=== PATIENT | male | born 1960 | race Native Hawaiian/Other Pacific Islander ===

== ENCOUNTER 2021-01-01 09:44 | Outpatient (REF) | payer MEDICAID, SELFPAY ==
--- NOTE | 2021-01-01 11:42 | XR_ITS ---
EXAMINATION: XR KNEE, LEFT CLINICAL INFORMATION: Left knee pain. COMPARISON: None TECHNIQUE: Four views of the left knee. FINDINGS: Mild medial compartment joint space narrowing with tiny marginal osteophytes. Tricompartmental chondrocalcinosis. No significant joint effusion. No fracture or dislocation. 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
[2021-01-01 12:06] LABS: MANUAL DIFF FLAG NO
[2021-01-01 12:08] LABS: Basophils Absolute Auto 0.1 X10*3/uL (0.0-0.2); Eosinophils Absolute Auto 0.3 X10*3/uL (0.0-0.4); Hematocrit 39.9 % (42-52); Hemoglobin 13.5 g/dl (14.0-18.0); Imm Gran Abs Auto 0.02 X10*3/uL (0.00-0.03); Imm Gran Pct Auto 0.3 % (0.0-0.4); Lymphocytes Absolute Auto 1.5 X10*3/uL (1.2-4.9); Mean Corpuscular HGB Conc 33.8 g/dl (31.0-36.0); Mean Corpuscular Hemoglobin 27.1 pg (27.0-33.0); Mean Corpuscular Volume 80.1 fL (80-98); Mean Platelet Volume 11.5 fL (9.4-12.4); Monocytes Absolute Auto 0.4 X10*3/uL (0.1-1.2); Monocytes Percent Auto 6.3 % (2-11); Neutrophils Absolute Auto 4.7 X10*3/uL (2.0-8.3); Neutrophils Percent Auto 67.4 % (45-73); Platelet Count 174 X10*3/uL (160-400); Red Blood Count 4.98 X10*6/uL (4.60-5.80); White Blood Count 6.9 X10*3/uL (4.8-10.8)
[2021-01-01 12:52] LABS: Alanine Aminotransferase 33 U/L (0-40); Albumin Level 4.5 g/dL (3.5-5.0); Alkaline Phosphatase 99 U/L (39-117); Anion Gap 15 (12-20); Aspartate Amino Transferase 23 U/L (5-37); Bilirubin Direct 0.2 mg/dL (0.0-0.5); Bilirubin Total 0.7 mg/dL (0.0-1.0); Blood Urea Nitrogen 17 mg/dL (9-16); Calcium 9.4 mg/dL (8.4-10.2); Carbon Dioxide 28 mmol/L (22-29); Chloride 101 mmol/L (96-108); Cholesterol 167 mg/dL; Estimated Glomerular Filt Rate > 60; Glucose Random 204 mg/dL (60-115); HDL Cholesterol 41 mg/dL; LDL Cholesterol Calculated 74 mg/dl; Potassium 4.6 mmol/L (3.3-5.1); Sodium 139 mmol/L (135-145); Triglycerides 263 mg/dL
[2021-01-01 12:57] LABS: Vitamin D 25-OH Total 30.3 ng/mL (>30)
[2021-01-01 13:23] LABS: Creatinine Urine 151.05 mg/dL
[2021-01-01 13:27] LABS: Estimated Average Glucose 200 mg/dL; Hemoglobin A1c % 8.6 %
[2021-01-01 14:01] LABS: Microalbum/Creatinine Ratio Ur 1548.4 ug/mg cr
== END 2021-01-01 09:45 | disposition home or self-care (01) ==
LOC: HO.LAB 09:44
PROVIDERS: Absent Provider Internal Medicine; PCP Internal Medicine; Visit Provider Nurse Practitioner Family
DX: Z00.00 Encounter for general adult medical examination without abnormal findings (principal); M25.562 Pain in left knee
CPT/HCPCS: 36415; 73564; 80048; 80061; 80076; 82043; 82306; 83036; 85025; 99202

== ENCOUNTER 2021-01-31 15:00 | Outpatient (RCR) | payer MEDICAID, SELFPAY ==
--- NOTE | 2021-01-17 15:02 | MHC.PT.EP ---
[facility] [place] Office [place] Office [place] Office [address] Jhonatan Farmer [address] [phone] F: [phone] F: [phone] F: [phone] F: [phone] Physical Therapy Plan of Care Date of Evaluation: 01/17/21 Date of Surgery: Diagnosis: sacroilitis Assessment: Pt has longstanding history of low back and leg pain. He has had therapy before with some improvement. Pt is avoiding surgery, but it sounds like his quality of life is significantly reduced. He can not drive very far due to pain. He has pain with all prolonged activity greater than 10 min. He says he stays in bed most of his day other than personal hygiene. Pt is a good candidate for conservative PT to educate on pain relieving positions, exercises, and functional modifications. Frequency and Duration: The patient will be seen 2x/week x 4 weeks. Short Term Goals: 1.Pt to able to demonstrate proper sitting posture with the use of a lumbar roll to decrease aggravating factors. 2.Pt to be able to demonstrate proper posture for common leisure activities such as crocheting and phone/tablet use. 3.For the patient to demonstrate proper upright sitting posture with use of the lumbar roll to improve compliance and carryover. Prison Goals: 4 weeks - 1.The patient to demonstrate proper lifting mechanics for household chore activities to show improved functional mobility. 2.The patient to report no leg or hip pain in order to show centralization of pain and reduction of lumbar derangement 3. Pt to be able to demonstrate self management of lumbar pain by demonstration of HEP. Treatment Plan: Modalities to reduce pain, spasms and effusion. Manual therapy to restore motion and function. Therapeutic exercise to improve strength and flexibility. Neuromuscular re-education for posture and balance. Therapeutic activities to return to functional activities of daily living. Electronically signed by: Jeanette Alegre PT DPT Please sign and return to therapist. Thank you for your referral.
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
== END 2021-03-27 14:39 | disposition other institution (70) ==
LOC: HO.PT 15:00
PROVIDERS: PCP Internal Medicine; Visit Provider Anesthesiology
DX: M46.1 Sacroiliitis, not elsewhere classified (principal)
CPT/HCPCS: 97110; 97112; 97162

== ENCOUNTER 2023-09-29 08:16 | Outpatient (REF) | payer MEDICAID, SELFPAY ==
[2023-09-29 12:13] LABS: Alanine Aminotransferase 27 U/L (0-40); Albumin Level 4.2 g/dL (3.5-5.0); Alkaline Phosphatase 102 U/L (39-117); Anion Gap 15 (12-20); Aspartate Amino Transferase 23 U/L (5-37); Bilirubin Direct 0.2 mg/dL (0.0-0.5); Bilirubin Total 0.4 mg/dL (0.0-1.0); Blood Urea Nitrogen 15 mg/dL (9-16); Calcium 10.6 mg/dL (8.4-10.2); Carbon Dioxide 28 mmol/L (22-29); Chloride 99 mmol/L (96-108); Cholesterol 166 mg/dL (<200); Estimated Glomerular Filt Rate > 60; Glucose Random 179 mg/dL (60-115); HDL Cholesterol 41 mg/dL (>40); LDL Cholesterol Calculated 89 mg/dL (<100); Potassium 3.9 mmol/L (3.3-5.1); Sodium 138 mmol/L (135-145); Total Protein 7.1 g/dL (6.5-8.0); Triglycerides 182 mg/dL (<150)
[2023-09-29 13:04] LABS: Creatinine Urine 171.09 mg/dL
== END 2023-09-29 08:17 | disposition home or self-care (01) ==
LOC: HO.HHCL 08:16
PROVIDERS: Visit Provider Family Medicine
DX: E11.9 Type 2 diabetes mellitus without complications (principal); Z79.4 Long term (current) use of insulin
CPT/HCPCS: 36415; 80048; 80061; 80076; 82043; 82570

== ENCOUNTER 2024-07-13 13:52 | Outpatient (REF) | payer MEDICAID, SELFPAY ==
[2024-07-13 16:27] LABS: Anion Gap 14 (12-20); Blood Urea Nitrogen 18 mg/dL (9-16); Carbon Dioxide 25 mmol/L (22-29); Chloride 103 mmol/L (96-108); Estimated Glomerular Filt Rate > 60; Glucose Random 89 mg/dL (60-115); Potassium 3.9 mmol/L (3.3-5.1); Sodium 138 mmol/L (135-145)
[2024-07-13 17:36] LABS: Vitamin B12 654 pg/mL (200-900)
[2024-07-14 08:13] LABS: ~Hepatitis B Surface Antibody NONREACTIVE (Nonreactive)
== END 2024-07-13 13:53 | disposition home or self-care (01) ==
LOC: HO.HHCL 13:52
PROVIDERS: Visit Provider Internal Medicine
DX: I10 Essential (primary) hypertension (principal); E11.65 Type 2 diabetes mellitus with hyperglycemia; Z79.4 Long term (current) use of insulin
CPT/HCPCS: 36415; 80048; 82607; 86706

== ENCOUNTER 2025-07-28 14:13 | Outpatient (REF) | payer OTHER, SELFPAY ==
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
--- OUTSIDE RECORDS SUMMARY | 2025-07-28 15:02 | XMS_ITS | Encounter Summary ---
Author Organization [employer] Address [address] [facility] 7t [place] [address] Care Team Providers Care Manager Of Business Name Role Phone Janine Nascimento MD Primary Care Provide r Encounter Details Date Type Department Care Team ([facility] st Contact Info) Description 09/21/2024 Orders Only [facility] MED[facility] [address] [place], [place] [phone] Janine Nascimento MD [address] [place] [address] Social History Tobacco Use Types Packs/Day Years Used Date Smoking Tobacco: Former Cigarettes Passive Smoke Exposure: Never Smokeless Tobacco: Never Alcohol Use Standard Drinks/Week Comments Never 0 (1 standard drink = 0.6 oz pur e alcohol) Depression Answer Date Recorded Patient Health Questionnaire-9 Score 0 06/21/2024 Patient Health Questionnaire-9 Score 0 06/21/2024 Last PHQ-9: Questionnaire Data Not on file 0 06/21/2024 Housing Stability Answer Date Recorded What is your housing situation today? I have edgar morrison 09/15/[address] you li ve. Do you have problems with any of the following? None of the above 09/15/2023 Food Insecurity Answer Date Recorded Within the past 12 months, y ou worried that your food would run out before you got money to buy more: Never True 09/15/2023 Within the past 12 months,th e food you bought just didn't last and you didn't have enough money to get more: Never True Transportation Answer Date Recorded In the past 12 months, has l ack of transportation kept you from medical appts, meetings, work or from getting things needed for daily living? No 09/15/2023 Utilities Answer Date Recorded In the past 12 months, has t he electric, gas, oil or water company threatened to shut off services in your home? No 09/15/2023 Depression Answer Date Recorded Patient Health Questionnaire-2 Score 0 06/21/2024 Internet Access Answer Date Recorded Internet Access Q1 No 08/02/2024 Internet Access Q2 I do not want or need it 01/2024 Sex and Gender Information Value Date Recorded Sex Assigned at Male 09/30/2022 10:29 AM EDT Legal Sex Male 10:29 AM EDT Gender Identity Male 09/30/2022 10:29 AM EDT Sexual Orientation Straight 09/30/2022 10 :29 AM EDT documented as of this encounter Plan of Treatment Not on file documented as of this encounter Visit Diagnoses Not on filedocumented in this encounter Additional Health Concerns Assessment Noted Time PHQ-9 Depression Total Score: 0 06/21/20 24 3:10 PM EDT documented as of this encounter Care Teams Manager Of Business Relationship Specialty Start Date End Date Janine Nascimento MD [address] [place] [address] PCP - General Family Medicine 08/12/18 documented as of this encounter
--- OUTSIDE RECORDS SUMMARY | 2025-07-28 15:02 | XMS_ITS | Encounter Summary ---
Author Organization [employer] Address 75 [facility] 7 [place] [address] Care Team Providers Care Mastic Floor Layer Name Role Phone Janine Nascimento MD Primary Care Provide r Reason for Visit * Reason Comments Med Refill Encounter Details Date Type Department Care Team ([facility] st Contact Info) Description 08/18/2024 Refill [facility] 230 [place], [place] [phone] Janine Nascimento MD [address] [place] [address] Type 2 diabetes mellitus with other specified complication, unspecified whether retirement insulin use ([facility]) Social History Tobacco Use Types Packs/Day Years Used Date Smoking Tobacco: Never Passive Smoke Exposure: Never Smokeless Tobacco: Never [...] as of this encounter Visit Diagnoses Diagnosis Type 2 diabetes mellitus with other specified complication, unspecified whether moth exterminator insulin use ([facility]) documented in this encounter Additional Health Concerns Assessment Noted Time PHQ-9 Depression Total Score: 0 06/21/20 24 3:10 PM EDT documented as of this encounter Care Teams Mastic Floor Layer Relationship Specialty Start Date End Date Janine Nascimento MD [address] [place] [address] PCP - General Family Medicine 08/12/18 documented as of this encounter
--- OUTSIDE RECORDS SUMMARY | 2025-07-28 15:02 | XMS_ITS | Encounter Summary ---
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); Benign prostatic hyperplasia, unspecified whether lower urinary tract symptoms present; Hyperlipidemia, unspecified hyperlipidemia type Social History Tobacco Use Types Packs/Day Years [...] mellitus with other specified complication, unspecified whether engine lathe set up operator insulin use ([facility]) Benign prostatic hyperplasia, unspecified whether lower urinary tract symptoms present Hyperlipidemia, unspecified hyperlipidemia type documented in this encounter Additional Health Concerns Assessment Noted Time PHQ-9 Depression Total Score: 0 06/21/20 24 3:10 PM EDT documented as of this encounter Care Teams Email Marketing Assistant Relationship Specialty Start Date End Date Janine Nascimento MD [address] [place] [id number] PCP - General Family Medicine 08/12/18 documented as of this encounter
--- OUTSIDE RECORDS SUMMARY | 2025-07-28 15:02 | XMS_ITS | Encounter Summary ---
Author Organization [employer] Address [address] [place] [address] 7 [place] [address] Care Team Providers Care Crab Butcher Name Role Phone Janine Nascimento MD Primary Care Provide r Reason for Visit * Reason Onset Date Comments Medication Question 04/08/2023 Trulicity Encounter Details Date Type Department Care Team ([facility] st Contact Info) Description 04/08/2023 Telephone [facility] MED[facility] 230 [place], [place] [phone] Janine Nascimento MD [address] [place] [address] Medication Question (Trulicity) Social History Tobacco Use Types Packs/Day Years Used Date Smoking Tobacco: Never Passive Smoke Exposure: Never Smokeless Tobacco: Never Sex and Gender Information Value Date Recorded Sex Assigned at Male 09/30/2022 10:29 AM EDT Legal Sex Male 10:29 AM EDT Gender Identity Male 09/30/2022 10:29 AM EDT Sexual Orientation Straight 09/30/2022 10 :29 AM EDT COVID-19 Exposure Response Date Recorded In the last 10 days, have yo u been in contact with someone who was confirmed or suspected to have Coronavirus/COVID-19? No / Unsure 03/14/2023 3:07 PM EDT documented as of this encounter Miscellaneous Notes * Telephone Encounter - Jazmine Saab RN - 04/08/2023 3:23 PM EDT TC returned to pt [phone] who reports since starting the trulicity medication his BS's have been ranging between 110-130. Pt is inquiring if he should continue taking trulicity or if he should stop. RN advised pt to continue taking medications EXACTLY as prescribed and to NOT self discontinue any medications without PCP approval. Pt reports PCP wanted him to report back his BS reading after 1 month of Trulicity. Pt informed RN would send message to PCP as FYI. Pt to F/U PRN. * Telephone Encounter - Mally Holliday - 04/08/2023 2:44 PM EDT Tc from patient requesting a call back, in regards to medication trulicity. States PCP told him to take it for 4 weeks and check back in. Pharmacy has gave him another month supply, he states his sugar is controlled but would like to know if he should take those 4 weeks or not. Please call [phone]. documented in this encounter Plan of Treatment Not on file documented as of this encounter Visit Diagnoses Not on filedocumented in this encounter Additional Health Concerns Assessment Noted Time PHQ-9 Depression Total Score: 0 03/14/20 23 3:29 PM EDT documented as of this encounter Care Teams Crab Butcher Relationship Specialty Start Date End Date Janine Nascimento MD [address] [place] [address] PCP - General Family Medicine 08/12/18 documented as of this encounter
--- OUTSIDE RECORDS SUMMARY | 2025-07-28 15:02 | XMS_ITS | Encounter Summary ---
Author Organization [employer] Address [address] [place] [address] 7t [place] [address] Care Team Providers Care Manufacturing Scheduler Name Role Phone Janine Nascimento MD Primary Care Provide r Reason for Visit * Reason Comments Med Refill Encounter Details Date Type Department Care Team (Late st Contact Info) Description 04/22/2023 Refill [facility] 230 [place], [place] [phone] Janine Nascimento MD [address] [place] [address] Social History Tobacco Use Types Packs/Day Years [...] documented as of this encounter Care Teams Manufacturing Scheduler Relationship Specialty Start Date End Date Janine Nascimento MD [address] [place] [address] PCP - General Family Medicine 08/12/18 documented as of this encounter
--- OUTSIDE RECORDS SUMMARY | 2025-07-28 15:02 | XMS_ITS | Encounter Summary ---
Author Organization [employer] Address [address] [facility] 7t [place] [address] Care Team Providers Care Sugar Coating Hand Name Role Phone Janine Nascimento MD Primary Care Provide r Encounter Details Date Type Department Care Team (Latest Contact Info) Description 07/28/2025 Travel Social History Tobacco Use Types Packs/Day Years [...] documented as of this encounter Care Teams Sugar Coating Hand Relationship Specialty Start Date End Date Janine Nascimento MD [address] [place] [address] PCP - General Family Medicine 08/12/18 documented as of this encounter
--- OUTSIDE RECORDS SUMMARY | 2025-07-28 15:02 | XMS_ITS | Encounter Summary ---
Author Organization [employer] Address 75 [facility] 7 [place] [address] Care Team Providers Care Veneer Grader Name Role Phone Janine Nascimento MD Primary Care Provide r Reason for Visit * Reason Comments Med Refill Encounter Details Date Type Department Care Team ([facility] st Contact Info) Description 09/09/[address] [facility] 230 [place], [place] [phone] Janine Nascimento MD [address] [place] [address] Type 2 diabetes mellitus with other specified complication, unspecified whether chcf insulin use ([facility]) Social History Tobacco Use Types Packs/Day Years [...] mellitus with other specified complication, unspecified whether utility aircrewman insulin use ([facility]) documented in this encounter Additional Health Concerns Assessment Noted Time PHQ-9 Depression Total Score: 0 06/21/20 24 3:10 PM EDT documented as of this encounter Care Teams Veneer Grader Relationship Specialty Start Date End Date Janine Nascimento MD [address] [place] [address] PCP - General Family Medicine 08/12/18 documented as of this encounter
--- OUTSIDE RECORDS SUMMARY | 2025-07-28 15:03 | XMS_ITS | Encounter Summary ---
Author Organization [employer] Address [address] [facility] 7t [place] [address] Care Team Providers Care Ice Guard Tester Name Role Phone Janine Nascimento MD Primary Care Provide r Encounter Details Date Type Department Care Team (Late st Contact Info) Description 05/13/2023 Orders Only [facility] [address] [place] [address] Zoe Cruz LPN Social History Tobacco Use Types Packs/Day Years [...] suspected to have Coronavirus/COVID-19? No / Unsure 05/05/2023 10:51 AM EDT documented as of this encounter Plan of Treatment Not on file documented as of this encounter Visit Diagnoses Not on filedocumented in this encounter Additional Health Concerns Assessment Noted Time PHQ-9 Depression Total Score: 0 03/14/20 23 3:29 PM EDT documented as of this encounter Care Teams Ice Guard Tester Relationship Specialty Start Date End Date Janine Nascimento MD [address] [place] [address] PCP - General Family Medicine 08/12/18 documented as of this encounter
--- OUTSIDE RECORDS SUMMARY | 2025-07-28 15:03 | XMS_ITS | Encounter Summary ---
Author Organization [employer] Address [address] [place] [address] 7 [place] [address] Care Team Providers Care Market Research Worker Name Role Phone Janine Nascimento MD Primary Care Provide r Encounter Details Date Type Department Care Team (Late st Contact Info) Description 11/08/2022 Orders Only [facility] MEDICINE [address] [place], [place] [phone] Karyn Cole MD [address] [place] [address] Other chronic pain (Primary Dx) Social History Tobacco Use Types Packs/Day Years Used Date Smoking Tobacco: Never Assessed Sex and Gender Information Value Date Recorded Sex Assigned at Male 09/30/2022 10:29 AM EDT Legal Sex Male 10:29 AM EDT Gender Identity Male 09/30/2022 10:29 AM EDT Sexual Orientation Straight 09/30/2022 10 :29 AM EDT documented as of this encounter Plan of Treatment Not on file documented as of this encounter Visit Diagnoses Diagnosis Other chronic pain- Primary documented in this encounter Care Teams Market Research Worker Relationship Specialty Start Date End Date Janine Nascimento MD [address] [place], [place] [phone] PCP - General Family Medicine 08/12/18 documented as of this encounter
--- OUTSIDE RECORDS SUMMARY | 2025-07-28 15:03 | XMS_ITS | Encounter Summary ---
Author Organization [employer] Address [address] [place] [address] 7 [place] [address] Care Team Providers Care Hay Baler Name Role Phone Janine Nascimento MD Primary Care Provide r Reason for Visit * Reason Comments Med Refill Encounter Details Date Type Department Care Team (Late st Contact Info) Description 07/14/2023 Refill [facility] 230 [place], [place] [phone] Janine Nascimento MD [address] [place] [address] Essential hypertension Social History Tobacco Use Types Packs/Day Years [...] as of this encounter Visit Diagnoses Diagnosis Essential hypertension Unspecified essential hypertension documented in this encounter Additional Health Concerns Assessment Noted Time PHQ-9 Depression Total Score: 0 03/14/20 23 3:29 PM EDT documented as of this encounter Care Teams Hay Baler Relationship Specialty Start Date End Date Janine Nascimento MD [address] [place], [place] [phone] PCP - General Family Medicine 08/12/18 documented as of this encounter
--- OUTSIDE RECORDS SUMMARY | 2025-07-28 15:03 | XMS_ITS | Clinical Summary ---
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 Left Eye Progression has no prior data. Disc findings include normal observations (Cup-to-disc ratio (C/D): 0.55/0.55 with thinning inferiorly, No NVD). Macula findings include normal observations (No CSME). Vessel findings include normal observations. Periphery findings include normal observations (No NVE). Notes Assessment and Plan: No Dr noted to extent seen in either eye. 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 Will have patient return for a dilated eye exam due to the nevus. Tiffany Chacon OD OPHTH PHOTOGRAPHY Final Resul t * (ABNORMAL) Albumin, Random Urine W/Creatinine (09/29/2023 8:19 AM EDT) Creatinine, Urine 171.09 mg/dL [facility] Microalbumin Urine 1,906.0 mg/L H [facility] Microalbum Creatinine Ratio Ur 1,114.0(H ) <30 ug/mg cr [facility] Comment:Albumin/Creatinine R atio Reference Ranges: Normal: < 30 ug/mg creatinine Microalbuminuria: 30 - 300 ug/mg creatinineClinical Albuminuria: > 300 ug/mg creatinine 09/29/2023 8:19 AM EDT 09/29/2023 11:45 AM EDT Richelle Martin MD LAB URINE ORDERABLES Final Result [facility] [address] [place] [phone] [phone] * (ABNORMAL) Lipid Panel, Standard (09/29/2023 8:19 AM EDT) Triglycerides 182(H) <150 mg/dL [facility] Comment:Desirable Triglyceri de: less than 150 mg/dLBorderline High Triglyceride 150-199 mg/dLHigh Triglyceride: 200-499 mg/dLVery High Triglyceride: greater than or equal to 5OO mg/dL Cholesterol 166 <200 mg/dL [facility] Comment:Desirable Cholestero l: less than 200 mg/dLBorderline High Cholesterol: 200-239 mg/dLHigh Cholesterol: greater than 239 mg/dL LDL Cholesterol Calculated 89 <100 mg/dL [facility] Comment:Desirable LDL: less than 100 mg/dLNear Optimal/Above Optimal LDL: 110- 129 mg/dLBorderline High LDL: 130-159 mg/dLHigh LDL: 160-189 mg/dLVery High LDL: greater than or equal to 190 mg/dL HDL Cholesterol 41 >40 mg/dL [facility] Comment:Desirable HDL: great er than 40 mg/dL Note: This HDL assay may give artificially low results in patients with liver disease. Blood Venous blood specimen / Unknown 09/29/2023 8:19 AM EDT 09/29/2023 11:50 AM EDT Richelle Martin MD LAB BLOOD ORDERABLES Final Result [facility] [address] [place] [phone] [phone] * Cologuard?? colon cancer screening (08/20/2023 2:56 PM EDT) Cologuard Result Negative Negative 08/25/20 6:22 PM EDT [facility] (CLIA #:[id number]) Comment: NEGATIVE TEST RESULT. A negative Cologuard result indicates a low likelihood that a colorectal cancer (CRC) or advanced adenoma (adenomatous polyps with more advanced pre-malignant features) is present. The chance that a person with a negative Cologuard test has a colorectal cancer is less than 1 in 1500 (negative predictive value >99.9%) or has an advanced adenoma is less than 5.3% (negative predictive value 94.7%). These data are based on a prospective cross-sectional study of 10,000 individuals at average risk for colorectal cancer who were screened with both Cologuard and colonoscopy. (Joselin Mai et al, N Engl J Med 2014;370(14):9881-3468) The normal value (reference range) for this assay is negative. COLOGUARD RE-SCREENING RECOMMENDATION: Periodic colorectal cancer screening is an important part of preventive healthcare for asymptomatic individuals at average risk for colorectal cancer. Following a negative Cologuard result, the [place] Cancer Society and U.S. Multi-Society Task Force screening guidelines recommend a Cologuard re-screening interval of 3 years. References: [employer] Cancer Society Guideline for Colorectal Cancer Screening: https://www.cancer.org/cancer/bjcem-lhqauh-xwgwqk/tukeyjjbi-atxifwlfg-lseedxu/ac s-rec ommendations.html.; Elie DK, [place] ARTEAGA, Samuel WhiteK, Colorectal Cancer Screening: Recommendations for Physicians and Patients from the U.S. Multi-Society Task Force on Colorectal Cancer Screening , Am J Gastroenterology 2017; 112:9249-2182. TEST DESCRIPTION: Composite algorithmic analysis of stool DNA-biomarkers with hemoglobin immunoassay. Quantitative values of individual biomarkers are not reportable and are not associated with individual biomarker result reference ranges. Cologuard is intended for colorectal cancer screening of adults of either sex, 45 years or older, who are at average-risk for colorectal cancer (CRC). Cologuard has been approved for use by the U.S. FDA. The performance of Cologuard was established in a cross sectional study of average-risk adults aged 50-84. Cologuard performance in patients ages 45 to 49 years was estimated by sub-group analysis of near-age groups. Colonoscopies performed for a positive result may find as the most clinically significant lesion: colorectal cancer [4.0%], advanced adenoma (including sessile serrated polyps greater than or equal to 1cm diameter) [20%] or non- advanced adenoma [31%]; or no colorectal neoplasia [45%]. These estimates are derived from a prospective cross-sectional screening study of 10,000 individuals at average risk for colorectal cancer who were screened with both Cologuard and colonoscopy. (Joselni Carver al, N Engl J Med 2014;370(14):7831-4943.) Cologuard may produce a false negative or false positive result (no colorectal cancer or precancerous polyp present at colonoscopy follow up). A negative Cologuard test result does not guarantee the absence of CRC or advanced adenoma (pre-cancer). The current Cologuard screening interval is every 3 years. ([employer] Cancer Society and U.S. Multi-Society Task Force). Cologuard performance data in a 10,000 patient pivotal study using colonoscopy as the reference method can be accessed at the following location: www.[employer]/results. Additional description of the Cologuard test process, warnings and precautions can be found at www.[employer].com. Stool specimen (specimen) 08/20/2023 2:56 PM EDT 08/21/2023 5:59 PM EDT Janine Martínez MD LAB MOLECULAR DIAGNOS TICS ORDERABLES Final Result [facility] (CLIA #:[id number]) [address] [place] [address], from Last 3 Months or Most Recently Relevant to Health Maintenance Insurance [facility] [employer] Care Teams Digital Commentator Relationship Specialty Start Date End Date Janine Nascimento MD [address] [place] [phone] PCP - General Family Medicine 9/12/18
--- OUTSIDE RECORDS SUMMARY | 2025-07-28 15:03 | XMS_ITS | Encounter Summary ---
Author Organization [employer] Address [address] [facility] 7t [place] [address] Care Team Providers Care Food Service Worker Hospital Name Role Phone Janine Nascimento MD Primary Care Provide r Reason for Visit * Reason Comments Med Refill Encounter Details Date Type Department Care Team ([facility] st Contact Info) Description 11/08/2024 Refill [facility] [address] [place], [place] [phone] Richelle Martin MD [address] [place] [address] Type 2 diabetes mellitus without complication, with long-term current use of insulin ([facility]) Social History Tobacco Use Types Packs/Day Years [...] Visit Diagnoses Diagnosis Type 2 diabetes mellitus without complication, with long-term current use of insulin ([facility]) documented in this encounter Additional Health Concerns Assessment Noted Time PHQ-9 Depression Total Score: 0 06/21/20 24 3:10 PM EDT documented as of this encounter Care Teams Food Service Worker Hospital Relationship Specialty Start Date End Date Janine Nascimento MD [address] [place] [phone] PCP - General Family Medicine 08/12/18 documented as of this encounter
--- OUTSIDE RECORDS SUMMARY | 2025-07-28 15:03 | XMS_ITS | Encounter Summary ---
Author Organization [employer] Address [address] [facility] 7t [place] [address] Care Team Providers Care Cut And Print Machine Operator Name Role Phone Janine Nascimento MD Primary Care Provide r Encounter Details Date Type Department Care Team (Late st Contact Info) Description 07/14/2023 Orders Only [facility] [address] [place] [address] Sylvia Ordonez LPN Social History Tobacco Use Types Packs/Day [...] documented as of this encounter Care Teams Cut And Print Machine Operator Relationship Specialty Start Date End Date Janine Nascimento MD [address] [place] [phone] PCP - General Family Medicine 08/12/18 documented as of this encounter
--- OUTSIDE RECORDS SUMMARY | 2025-07-28 15:03 | XMS_ITS | Encounter Summary ---
Author Organization [employer] Address [address] [place] [address] 7 [place] [address] Care Team Providers Care Clinical Project Leader Name Role Phone Janine Nascimento MD Primary Care Provide r Reason for Visit * Reason Comments Med Refill Encounter Details Date Type Department Care Team (Late st Contact Info) Description 01/10/2023 Refill [facility] [address] [place], [place] [phone] Karyn Cole MD [address] [place], [place] [phone] Type 2 diabetes mellitus with other specified complication, unspecified whether [facility] insulin use (CMS/HCC) Social History Tobacco Use Types Packs/Day Years [...] mellitus with other specified complication, unspecified whether watermelon inspector insulin use (CMS/HCC) documented in this encounter Care Teams Clinical Project Leader Relationship Specialty Start Date End Date Janine Nascimento MD [address] [place], [place] [phone] PCP - General Family Medicine 08/12/18 documented as of this encounter
--- OUTSIDE RECORDS SUMMARY | 2025-07-28 15:03 | XMS_ITS | Encounter Summary ---
Author Organization [facility] [employer] Address [address] [facility] 7t [place] [address] Care Team Providers Care Political Scientist Name Role Phone Janine Nascimento MD Primary Care Provide r Reason for Visit * Reason Comments Med Refill Encounter Details Date Type Department Care Team ([facility] st Contact Info) Description 11/27/2024 Refill [facility] [address] [place], [place] [phone] Richelle Martin MD [address] [place] [address] Type 2 diabetes mellitus without complication, with long-term current use of insulin ([facility]) Social History Tobacco Use Types Packs/Day Years [...] complication, with long-term current use of insulin ([facility]) documented in this encounter Additional Health Concerns Assessment Noted Time PHQ-9 Depression Total Score: 0 06/21/20 24 3:10 PM EDT documented as of this encounter Care Teams Political Scientist Relationship Specialty Start Date End Date Janine Nascimento MD [address] [place] [phone] PCP - General Family Medicine 08/12/18 documented as of this encounter
--- OUTSIDE RECORDS SUMMARY | 2025-07-28 15:03 | XMS_ITS | Encounter Summary ---
Author Organization [employer] Address [address] [place] [address] 7t [place] [address] Care Team Providers Care Pin Attacher Name Role Phone Janine Nascimento MD Primary Care Provide r Reason for Visit * Reason Comments Med Refill Encounter Details Date Type Department Care Team ([facility] st Contact Info) Description 08/23/2023 Refill [facility] [address] [place] [address] Janine Nascimento MD [address] [place] [address] Tinea pedis of both feet Social History Tobacco Use Types Packs/Day Years Used Date Smoking Tobacco: Never Passive Smoke Exposure: Never Smokeless Tobacco: Never Alcohol Use Standard Drinks/Week Comments Never 0 (1 standard drink = 0.6 oz pur e alcohol) Depression Answer Date Recorded Patient Health Questionnaire-9 Score 0 08/06/2023 Depression Answer Date Recorded Patient Health Questionnaire-2 Score 0 08/06/2023 Sex and Gender Information Value Date Recorded Sex Assigned at Male 09/30/2022 10:29 AM EDT Legal Sex Male 10:29 AM EDT Gender Identity Male 09/30/2022 10:29 AM EDT Sexual Orientation Straight 09/30/2022 10 :29 AM EDT documented as of this encounter Plan of Treatment Not on file documented as of this encounter Visit Diagnoses Diagnosis Tinea pedis of both feet documented in this encounter Additional Health Concerns Assessment Noted Time PHQ-9 Depression Total Score: 0 08/06/20 23 10:18 AM EDT documented as of this encounter Care Teams Pin Attacher Relationship Specialty Start Date End Date Janine Nascimento MD [address] [place] [address] PCP - General Family Medicine 08/12/18 documented as of this encounter
== END 2025-07-28 14:14 | disposition home or self-care (01) ==
LOC: HO.HHCX 14:13
PROVIDERS: PCP Internal Medicine; Visit Provider Internal Medicine
DX: M54.2 Cervicalgia (principal); M25.512 Pain in left shoulder; R07.81 Pleurodynia; M25.562 Pain in left knee; M25.552 Pain in left hip; V89.2XXA Person injured in unspecified motor-vehicle accident, traffic, initial encounter
CPT/HCPCS: 71111; 72040; 73030; 73502; 73564

== ENCOUNTER → 2025-07-28 14:35 | Outpatient (BNV) | payer OTHER, MEDICAID, SELFPAY | PROVIDERS: PCP Internal Medicine; Visit Provider Radiology Diagnostic Radiology | DX: R07.89 Other chest pain (principal); M17.12 Unilateral primary osteoarthritis, left knee; M25.462 Effusion, left knee; M25.552 Pain in left hip; M54.2 Cervicalgia; M25.512 Pain in left shoulder; V89.2XXA Person injured in unspecified motor-vehicle accident, traffic, initial encounter | CPT/HCPCS: 71111; 72040; 73030; 73502; 73564 ==

== ENCOUNTER 2025-09-30 11:59 | Outpatient (REF) | payer MEDICAID, SELFPAY ==
--- OUTSIDE RECORDS SUMMARY | 2025-09-30 13:32 | XMS_ITS | Encounter Summary ---
Author Organization [employer] Address [address] [place] [address] 7 [place] [address] Care Team Providers Care Scrap Baller Name Role Phone Janine Nascimento MD Primary Care Provide r Reason for Visit * Reason Onset Date Comments Medication Question 04/08/2023 Trulicity Encounter Details Date Type Department Care Team ([facility] st Contact Info) Description 04/08/2023 Telephone [facility] [address] [place], [place] [phone] Janine Nascimento MD [address] [place] [address] Medication Question (Trulicity) Social History Tobacco Use [...] 3:23 PM EDT TC returned to pt [phone] who reports since starting the trulicity medication [...] those 4 weeks or not. Please call [phone]. documented in this encounter Plan of Treatment Upcoming Encounters Date Type Department Care Team (Late st Contact Info) Description 10/12/2025 11:30 AM EST Office Visit [facility] [address] [place] [address] [phone] Janine Nascimento MD [address] [place] [phone] documented as of this encounter Visit Diagnoses Not on filedocumented in this encounter Additional Health Concerns Assessment Noted Time PHQ-9 Depression Total Score: 0 03/14/20 23 3:29 PM EDT documented as of this encounter Care Teams Scrap Baller Relationship Specialty Start Date End Date Janine Nascimento MD [address] [place] [address] [phone] PCP - General Family Medicine 08/12/18 documented as of this encounter
--- OUTSIDE RECORDS SUMMARY | 2025-09-30 13:32 | XMS_ITS | Encounter Summary ---
Author Organization [employer] Address [address] [facility] 7t [place] [address] Care Team Providers Care Guideman Name Role Phone Janine Nascimento MD Primary Care Provide r Encounter Details Date Type Department Care Team ([facility] st Contact Info) Description 09/21/2024 Orders Only [facility] [address] [place], [place] [phone] Janine Nascimento MD [address] [place] [address] Social History Tobacco Use Types Packs/Day Years [...] as of this encounter Plan of Treatment Upcoming Encounters Date Type Department Care Team (Late st Contact Info) Description 10/12/2025 11:30 AM EST Office Visit [facility] [address] [place] [address] Janine Nascimento MD [address] [place] [phone] documented as of this encounter Visit Diagnoses Not on filedocumented in this encounter Additional Health Concerns Assessment Noted Time PHQ-9 Depression Total Score: 0 06/21/20 24 3:10 PM EDT documented as of this encounter Care Teams Guideman Relationship Specialty Start Date End Date Janine Nascimento MD [address] [place] [phone] PCP - General Family Medicine 08/12/18 documented as of this encounter
--- OUTSIDE RECORDS SUMMARY | 2025-09-30 13:32 | XMS_ITS | Encounter Summary ---
Author Organization [employer] Address [address] [facility] 7t [place] [address] Care Team Providers Care Datastage Developer Name Role Phone Janine Nascimento MD Primary Care Provide r Reason for Visit * Reason Comments Med Refill Encounter Details Date Type Department Care Team ([facility] st Contact Info) Description 11/27/2024 Refill [facility] [address] [place], [place] [phone] Richelle Martin MD [address] [place] [address] Type 2 diabetes mellitus without complication, with long-term current use of insulin ([facility]) Social History Tobacco Use Types Packs/Day [...] Description 10/12/2025 11:30 AM EST Office Visit [facility] [address] [place] [address] Janine Nascimento MD [address] [place] [address] documented as of this encounter Visit Diagnoses Diagnosis Type 2 diabetes mellitus without complication, with long-term current use of insulin (HCC) documented in this encounter Additional Health Concerns Assessment Noted Time PHQ-9 Depression Total Score: 0 06/21/20 24 3:10 PM EDT documented as of this encounter Care Teams Datastage Developer Relationship Specialty Start Date End Date Janine Nascimento MD [address] [place] [address] PCP - General Family Medicine 08/12/18 documented as of this encounter
--- OUTSIDE RECORDS SUMMARY | 2025-09-30 13:32 | XMS_ITS | Encounter Summary ---
Author Organization [employer] Address [address] [facility] 7 [place] [address] Care Team Providers Care Feed Crusher Operator Name Role Phone Janine Nascimento MD Primary Care Provide r Reason for Visit * Reason Comments Med Refill Encounter Details Date Type Department Care Team ([facility] st Contact Info) Description 08/18/2024 Refill [facility] [address] [place], [place] [phone] Janine Nascimento MD [address] [place] [address] Type 2 diabetes mellitus with other specified complication, unspecified whether rat exterminator insulin use ([facility]) Social History Tobacco Use Types [...] Description 10/12/2025 11:30 AM EST Office Visit [facility] [address] [place] [address] Janine Nascimento MD [address] [place] [address] documented as of this encounter Visit Diagnoses Diagnosis Type 2 diabetes mellitus with other specified complication, unspecified whether usp insulin use (HCC) documented in this encounter Additional Health Concerns Assessment Noted Time PHQ-9 Depression Total Score: 0 06/21/20 24 3:10 PM EDT documented as of this encounter Care Teams Feed Crusher Operator Relationship Specialty Start Date End Date Janine Nascimento MD 230 [place], [place] [phone] PCP - General Family Medicine 08/12/18 documented as of this encounter
--- OUTSIDE RECORDS SUMMARY | 2025-09-30 13:32 | XMS_ITS | Encounter Summary ---
Author Organization [employer] Address [address] [facility] 7 [place] [address] Care Team Providers Care Object Oriented Programmer Name Role Phone Janine Nascimento MD Primary Care Provide r Reason for Visit * Reason Comments Med Refill Encounter Details Date Type Department Care Team ([facility] st Contact Info) Description 09/09/2024 Refill [facility] [address] [place], [place] [phone] Janine Nascimento MD [address] [place] [address] Type 2 diabetes mellitus with other specified complication, unspecified whether ocean transportation intermediary insulin use ([facility]) Social History Tobacco Use Types [...] Description 10/12/2025 11:30 AM EST Office Visit [facility] MEDICINE [address] [place] [address] Janine Nascimento MD [address] [place] [address] documented as of this encounter Visit Diagnoses Diagnosis Type 2 diabetes mellitus with other specified complication, unspecified whether custodial insulin use (HCC) documented in this encounter Additional Health Concerns Assessment Noted Time PHQ-9 Depression Total Score: 0 06/21/20 24 3:10 PM EDT documented as of this encounter Care Teams Object Oriented Programmer Relationship Specialty Start Date End Date Janine Nascimento MD [address] [place], [place] [phone] PCP - General Family Medicine 08/12/18 documented as of this encounter
--- OUTSIDE RECORDS SUMMARY | 2025-09-30 13:32 | XMS_ITS | Encounter Summary ---
Author Organization [employer] Address [address] [facility] 7t [place] [address] Care Team Providers Care Nutritionalist Name Role Phone Janine Nascimento MD Primary Care Provide r Reason for Visit * Reason Comments Med Refill Encounter Details Date Type Department Care Team ([facility] st Contact Info) Description 11/08/2024 Refill [facility] [address] [place], [place] [phone] Richelle Martin MD [address] [place] [address] Type 2 diabetes mellitus without complication, with long-term current use of insulin ([facility]) Social History Tobacco Use Types Packs/Day [...] Description 10/12/2025 11:30 AM EST Office Visit [facility] MEDICINE [address] [place] [address] Janine Nascimento MD [address] [place] [address] documented as of this encounter Visit Diagnoses Diagnosis Type 2 diabetes mellitus without complication, with long-term current use of insulin (HCC) documented in this encounter Additional Health Concerns Assessment Noted Time PHQ-9 Depression Total Score: 0 06/21/20 24 3:10 PM EDT documented as of this encounter Care Teams Nutritionalist Relationship Specialty Start Date End Date Janine Nascimento MD [address] [place] [address] PCP - General Family Medicine 08/12/18 documented as of this encounter
--- OUTSIDE RECORDS SUMMARY | 2025-09-30 13:32 | XMS_ITS | Encounter Summary ---
Author Organization [employer] Address [address] [place] [address] 7 [place] [address] Care Team Providers Care Slasher Tender Name Role Phone Janine Nascimento MD Primary Care Provide r Reason for Visit * Reason Comments Med Refill Encounter Details Date Type Department Care Team ([facility] st Contact Info) Description 03/14/2025 Refill [facility] MEDICINE [address] [place], [place] [phone] Janine Nascimento MD [address] [place] [address] Type 2 diabetes mellitus with other specified complication, unspecified whether detention insulin use ([facility]); Benign prostatic hyperplasia, unspecified whether lower urinary [...] Description 10/12/2025 11:30 AM EST Office Visit [facility] MEDICINE [address] [place] [phone] Janine Nascimento MD [address] [place] [phone] documented as of this encounter Visit Diagnoses Diagnosis Type 2 diabetes mellitus with other specified complication, unspecified whether detention insulin use (HCC) Benign prostatic hyperplasia, unspecified whether lower urinary tract symptoms present Hyperlipidemia, unspecified hyperlipidemia type documented in this encounter Additional Health Concerns Assessment Noted Time PHQ-9 Depression Total Score: 0 06/21/20 24 3:10 PM EDT documented as of this encounter Care Teams Slasher Tender Relationship Specialty Start Date End Date Janine Nascimento MD [address] [place] [phone] PCP - General Family Medicine 08/12/18 documented as of this encounter
--- OUTSIDE RECORDS SUMMARY | 2025-09-30 13:32 | XMS_ITS | Encounter Summary ---
Author Organization [email or web address] Address [address] [facility] 7t [place] [address] Care Team Providers Care Oracle Erp Developer Name Role Phone Janine Nascimento MD Primary Care Provide r Encounter Details Date Type Department Care Team (Late Contact Info) Description 05/13/2023 Orders Only [facility] MED & PEDS [address] [place] [address] Zoe Cruz LPN Social History Tobacco Use [...] Description 10/12/2025 11:30 AM EST Office Visit [facility] MEDICINE 230 [place], [place] [phone] Janine Nascimento MD [address] [place], [place] [phone] documented as of this encounter Visit Diagnoses Not on filedocumented in this encounter Additional Health Concerns Assessment Noted Time PHQ-9 Depression Total Score: 0 03/14/20 23 3:29 PM EDT documented as of this encounter Care Teams Oracle Erp Developer Relationship Specialty Start Date End Date Janine Nascimento MD [address] [place] [address] PCP - General Family Medicine 08/12/18 documented as of this encounter
--- OUTSIDE RECORDS SUMMARY | 2025-09-30 13:32 | XMS_ITS | Encounter Summary ---
Author Organization [employer] Address [address] [place] [address] 7 [place] [address] Care Team Providers Care Roving Winder Name Role Phone Janine Nascimento MD Primary Care Provide r Reason for Visit * Reason Comments Med Refill Encounter Details Date Type Department Care Team ([facility] Contact Info) Description 04/22/2023 Refill [facility] MED[facility] [address] [place] [address] [phone] Janine Nascimento MD [address] [place] [phone] Social History Tobacco Use Types Packs/Day Years [...] Encounters Date Type Department Care Team (Late Contact Info) Description 10/12/2025 11:30 AM EST Office Visit [facility] MED[facility] [address] [place] [address] [phone] Janine Nascimento MD [address] [place] [phone] documented as of this encounter Visit Diagnoses Not on filedocumented in this encounter Additional Health Concerns Assessment Noted Time PHQ-9 Depression Total Score: 0 03/14/20 23 3:29 PM EDT documented as of this encounter Care Teams Roving Winder Relationship Specialty Start Date End Date Janine Nascimento MD [address] [place] [address] PCP - General Family Medicine 08/12/18 documented as of this encounter
--- OUTSIDE RECORDS SUMMARY | 2025-09-30 13:33 | XMS_ITS | Encounter Summary ---
Author Organization [employer] Address [address] [place] [address] 7 [place] [address] Care Team Providers Care Strategic Analyst Name Role Phone Janine Nascimento MD Primary Care Provide r Encounter Details Date Type Department Care Team (Late st Contact Info) Description 07/14/2023 Orders Only [facility] MED & PEDS [address] [place], [place] [phone] Sylvia Ordonez LPN Social History Tobacco Use [...] Description 10/12/2025 11:30 AM EST Office Visit [facility] MEDICINE [address] [place] [address] Janine Nascimento MD [address] [place] [address] documented as of this encounter Visit Diagnoses Not on filedocumented in this encounter Additional Health Concerns Assessment Noted Time PHQ-9 Depression Total Score: 0 03/14/20 23 3:29 PM EDT documented as of this encounter Care Teams Strategic Analyst Relationship Specialty Start Date End Date Janine Nascimento MD [address] [place] [address] PCP - General Family Medicine 08/12/18 documented as of this encounter
--- OUTSIDE RECORDS SUMMARY | 2025-09-30 13:33 | XMS_ITS | Encounter Summary ---
Author Organization [employer] Address [address] [place] [address] 7 [place] [address] Care Team Providers Care Straddle Truck Driver Name Role Phone Janine Nascimento MD Primary Care Provide r Reason for Visit * Reason Comments Med Refill Encounter Details Date Type Department Care Team (Late st Contact Info) Description 07/14/2023 Refill [facility] [address] [place], [place] [phone] Janine Nascimento MD [address] [place] [address] Essential hypertension Social History Tobacco Use Types [...] Description 10/12/2025 11:30 AM EST Office Visit [facility] MEDICINE [address] [place], [place] [phone] Janine Nascimento MD [address] [place], [place] [phone] documented as of this encounter Visit Diagnoses Diagnosis Essential hypertension Unspecified essential hypertension documented in this encounter Additional Health Concerns Assessment Noted Time PHQ-9 Depression Total Score: 0 03/14/20 23 3:29 PM EDT documented as of this encounter Care Teams Straddle Truck Driver Relationship Specialty Start Date End Date Janine Nascimento MD [address] [place] [phone] PCP - General Family Medicine 08/12/18 documented as of this encounter
--- OUTSIDE RECORDS SUMMARY | 2025-09-30 13:33 | XMS_ITS | Clinical Summary ---
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 specimen / Unknown 07/14/2025 1:37 PM EDT Janine Martínez MD POINT OF CARE TEST EN TER/EDIT ORDERABLES Final Result * (ABNORMAL) Albumin, Random Urine W/Creatinine (09/29/2023 8:19 AM EDT) Creatinine, Urine 171.09 mg/dL [facility] Microalbumin Urine 1,906.0 mg/L H [facility] Microalbum Creatinine Ratio Ur 1,114.0(H ) <30 ug/mg cr [facility] Comment:Albumin/Creatinine R at Reference Ranges: Normal: < 30 ug/mg creatinine Microalbuminuria: 30 - 300 ug/mg creatinineClinical Albuminuria: > 300 ug/mg creatinine 09/29/2023 8:19 AM EDT 09/29/2023 11:45 AM EDT Richelle Martin MD LAB URINE ORDERABLES Final Result Performing Organization Address [facility] Co de Phone Number [facility] [address] [place] [address] [phone] * (ABNORMAL) Lipid Panel, Standard (09/29/2023 8:19 AM EDT) Triglycerides 182(H) <150 mg/dL [facility] Comment:Desirable Triglyceri de: less than 150 mg/dLBorderline High Triglyceride 150-199 mg/dLHigh Triglyceride: 200-499 mg/dLVery High Triglyceride: greater than or equal to 5OO mg/dL Cholesterol 166 <200 mg/dL [facility] Comment:Desirable Cholestero l: less than 200 mg/dLBorderline High Cholesterol: 200-239 mg/dLHigh Cholesterol: greater than 239 mg/dL LDL Cholesterol Calculated 89 <100 mg/dL [facility] Comment:Desirable LDL: less than 100 mg/dLNear Optimal/Above Optimal LDL: 110- 129 mg/dLBorderline High LDL: 130-159 mg/dLHigh LDL: 160-189 mg/dLVery High LDL: greater than or equal to 190 mg/dL HDL Cholesterol 41 >40 mg/dL [facility] Comment:Desirable HDL: great er than 40 mg/dL Note: This HDL assay may give artificially low results in patients with liver disease. Blood Venous blood specimen / Unknown 09/29/2023 8:19 AM EDT 09/29/2023 11:50 AM EDT Richelle Martin MD LAB BLOOD ORDERABLES Final Result Performing Organization Address City/[facility]/ZIP Co de Phone Number [facility] [address] [place] [address] [phone] * Cologuard?? colon cancer screening (08/20/2023 2:56 PM EDT) Cologuard Result Negative Negative 08/25/20 6:22 PM EDT [employer] (CLIA #:[id number]) Comment: NEGATIVE TEST RESULT. A negative Cologuard [...] screened with both Cologuard and colonoscopy. (Joselin Brown. et al, N Engl J Med 2014;370(14):9988-3528) The normal value (reference range) for this assay is negative. COLOGUARD RE-SCREENING RECOMMENDATION: Periodic colorectal cancer screening is an important part of preventive healthcare for asymptomatic individuals at average risk for colorectal cancer. Following a negative Cologuard result, the [place] [employer] and U.S. Multi-Society Task Force screening guidelines recommend a Cologuard re-screening interval of 3 years. References: [place] [employer] Guideline for Colorectal Cancer Screening: https://www.cancer.org/cancer/vitbp-nuqlfp-ktxfke/mmtypclvg-rvsmufifm-rutkovr/ac s-rec ommendations.html.; Elie KELLER, [place] ARTEAGA, Samuel WhiteK, Colorectal Cancer Screening: Recommendations for Physicians and Patients from the U.S. Multi-Society Task Force on Colorectal Cancer Screening , Am J Gastroenterology 2017; 112:0508-8296. TEST DESCRIPTION: Composite algorithmic analysis of stool [...] screened with both Cologuard and colonoscopy. (Joselin Brown. et al, N Engl J Med 2014;370(14):4488-4397.) Cologuard may produce a false negative or false positive result (no colorectal cancer or precancerous polyp present at colonoscopy follow up). A negative Cologuard test result does not guarantee the absence of CRC or advanced adenoma (pre-cancer). The current Cologuard screening interval is every 3 years. ([place] [employer] and U.S. Multi-Society Task Force). Cologuard performance data in a 10,000 patient pivotal study using colonoscopy as the reference method can be accessed at the following location: www.[employer]/results. Additional description of the Cologuard test process, warnings and precautions can be found at www.[employer].com. Stool specimen (specimen) 08/20/2023 2:56 PM EDT 08/21/2023 5:59 PM EDT Janine Martínez MD LAB MOLECULAR DIAGNOS TICS ORDERABLES Final Result [employer] (CLIA #:[id number]) [place] [address], from Last 3 Months or Most Recently Relevant to Health Maintenance Insurance [facility] [employer] Care Teams Insurance Counsel Relationship Specialty Start Date End Date Janine Nascimento MD [address] [place] [phone] PCP - General Family Medicine 08/12/18
--- OUTSIDE RECORDS SUMMARY | 2025-09-30 13:33 | XMS_ITS | Encounter Summary ---
Author Organization [email or web address] Address [address] [place] [address] [facility] [place] [address] Care Team Providers Care Bridge Opener Name Role Phone Janine Nascimento MD Primary Care Provide r Reason for Visit * Reason Comments Med Refill Encounter Details Date Type Department Care Team (Late st Contact Info) Description 01/10/2023 Refill [facility] [address] [place], [place] [phone] Karyn Cole MD [address] [place] [address] Type 2 diabetes mellitus with other specified complication, unspecified whether superintendent container terminal insulin use (CMS/HCC) Social History Tobacco Use [...] Description 10/12/2025 11:30 AM EST Office Visit [facility] [address] [place], [place] [phone] Janine Nascimento MD [address] [place], [place] [phone] documented as of this encounter Visit Diagnoses Diagnosis Type 2 diabetes mellitus with other specified complication, unspecified whether fpc insulin use (HCC) documented in this encounter Care Teams Bridge Opener Relationship Specialty Start Date End Date Janine Nascimento MD [address] [place] [address] PCP - General Family Medicine 08/12/18 documented as of this encounter
--- OUTSIDE RECORDS SUMMARY | 2025-09-30 13:33 | XMS_ITS | Encounter Summary ---
Author Organization [employer] Address [address] [place] [address] 7 [place] [address] Care Team Providers Care Director Title Name Role Phone Janine Nascimento MD Primary Care Provide r Reason for Visit * Reason Comments Med Refill Encounter Details Date Type Department Care Team ([facility] st Contact Info) Description 09/21/2025 Refill [facility] [address] [place], [place] [phone] Janine Nascimento MD [address] [place] [address] Type 2 diabetes mellitus with other specified complication, unspecified whether retirement insulin use (HCC); Type 2 diabetes mellitus with hyperglycemia, with long-term current use of insulin (HCC); Muscle spasm; Benign prostatic hyperplasia, unspecified whether lower urinary tract symptoms present Social History Tobacco Use Types Packs/Day Years [...] Description 10/12/2025 11:30 AM EST Office Visit [facility] [address] [place] [phone] Janine Nascimento MD [address] [place] [phone] documented as of this encounter Visit Diagnoses Diagnosis Type 2 diabetes mellitus with other specified complication, unspecified whether long chain quiller tender insulin use (HCC) Type 2 diabetes mellitus with hyperglycemia, with long-term current use of insulin (HCC) Muscle spasm Spasm of muscle Benign prostatic hyperplasia, unspecified whether lower urinary tract symptoms present documented in this encounter Additional Health Concerns Assessment Noted Time PHQ-9 Depression Total Score: 0 07/14/20 25 1:44 PM EDT documented as of this encounter Care Teams Director Title Relationship Specialty Start Date End Date Janine Nascimento MD [address] [place] [phone] PCP - General Family Medicine 08/12/18 documented as of this encounter
--- OUTSIDE RECORDS SUMMARY | 2025-09-30 13:33 | XMS_ITS | Encounter Summary ---
Author Organization [employer] Address [address] [place] [address] 7 [place] [address] Care Team Providers Care Color Finisher Name Role Phone Janine Nascimento MD Primary Care Provide r Reason for Visit * Reason Comments Med Refill Encounter Details Date Type Department Care Team (Late Contact Info) Description 08/23/2023 Refill [facility] [address] [place], [place] [phone] Janine Nascimento MD [address] [place] [address] Tinea pedis of both feet Social History [...] EST Office Visit [facility] [address] [place] [address] Janine Nascimento MD [address] [place] [address] documented as of this encounter Visit Diagnoses Diagnosis Tinea pedis of both feet documented in this encounter Additional Health Concerns Assessment Noted Time PHQ-9 Depression Total Score: 0 08/06/20 23 10:18 AM EDT documented as of this encounter Care Teams Color Finisher Relationship Specialty Start Date End Date Janine Nascimento MD [address] [place] [phone] PCP - General Family Medicine 08/12/18 documented as of this encounter
--- OUTSIDE RECORDS SUMMARY | 2025-09-30 13:33 | XMS_ITS | Encounter Summary ---
Author Organization [employer] Address [address] [place] [address] 7 [place] [address] Care Team Providers Care Machine Operator General Name Role Phone Janine Nascimento MD Primary Care Provide r Encounter Details Date Type Department Care Team (Late Contact Info) Description 11/08/[address] [facility] [address] [place] [phone] Karyn Cole MD [address] [place] [phone] Other chronic pain (Primary Dx) Social History [...] Description 10/12/2025 11:30 AM EST Office Visit [facility] [address] [place] [phone] Janine Nascimento MD [address] [place] [address] [phone] documented as of this encounter Visit Diagnoses Diagnosis Other chronic pain- Primary documented in this encounter Care Teams Machine Operator General Relationship Specialty Start Date End Date Janine Nascimento MD [address] [place] [address] [phone] PCP - General Family Medicine 08/12/18 documented as of this encounter
[2025-09-30 13:38] LABS: Alanine Aminotransferase 22 U/L (0-40); Albumin Level 4.2 g/dL (3.5-5.0); Alkaline Phosphatase 117 U/L (39-117); Anion Gap 12 (12-20); Aspartate Amino Transferase 26 U/L (5-37); Blood Urea Nitrogen 17 mg/dL (9-16); Calcium 9.1 mg/dL (8.4-10.2); Carbon Dioxide 29 mmol/L (22-29); Chloride 104 mmol/L (96-108); Estimated Glomerular Filt Rate > 60; Potassium 4.3 mmol/L (3.3-5.1); Sodium 141 mmol/L (135-145); Total Protein 6.8 g/dL (6.5-8.0)
[2025-09-30 13:49] LABS: Alanine Aminotransferase 22 U/L (0-40); Albumin Level 4.2 g/dL (3.5-5.0); Alkaline Phosphatase 116 U/L (39-117); Anion Gap 12 (12-20); Aspartate Amino Transferase 32 U/L (5-37); Blood Urea Nitrogen 18 mg/dL (9-16); Calcium 9.0 mg/dL (8.4-10.2); Carbon Dioxide 29 mmol/L (22-29); Chloride 104 mmol/L (96-108); Cholesterol 120 mg/dL (<200); Estimated Glomerular Filt Rate > 60; HDL Cholesterol 33 mg/dL (>40); Lipase 58 U/L (8-78); Potassium 4.2 mmol/L (3.3-5.1); Sodium 141 mmol/L (135-145); Total Protein 6.8 g/dL (6.5-8.0); Triglycerides 88 mg/dL (<150)
[2025-09-30 14:44] LABS: Microalbum/Creatinine Ratio Ur 793.2 ug/mg cr (<30)
== END 2025-09-30 12:00 | disposition home or self-care (01) ==
LOC: HO.HHCL 11:59
PROVIDERS: Internal Medicine; PCP Internal Medicine; Visit Provider Internal Medicine
DX: E11.65 Type 2 diabetes mellitus with hyperglycemia (principal); K52.9 Noninfective gastroenteritis and colitis, unspecified; Z79.4 Long term (current) use of insulin
CPT/HCPCS: 36415; 80053; 80061; 82043; 82570; 83690